=== PATIENT | female | born 1965 | race Caucasian/White ===

== ENCOUNTER 2016-07-29 08:24 | Inpatient (IN) | payer OTHER ==
[~2016-07-29] VITALS: Ht 154.9 cm; Wt 73.3 kg
[2016-07-30] MEDS ORDERED: INSULIN HUMAN REGULAR 1,000 UNITS/10 ML VIAL SQ PRN (06:30)
[2016-07-30] MEDS ORDERED: CHLORHEXIDINE GLUCONATE 2 % 1 PACK (2 CLOTHS) TOPICAL PRN (06:30)
[2016-07-30] MEDS ORDERED: POVIDONE IODINE 5% (ANTISEPSIS KIT) 4 APPLICATIONS EACH NARE PRN (06:30)
[2016-07-30] MEDS ORDERED: ceFAZolin 2 GM PREMIX 50 ML IV SCH (06:30)
[2016-07-30] MEDS ORDERED: METOPROLOL TARTRATE 25 MG TAB PO PRN (06:30)
[2016-07-30] MEDS ORDERED: SODIUM CHLORID 0.9% 500 ML IV PRN (06:30)
[2016-07-30] MEDS ORDERED: LACTATED RINGER'S 1000 ML IV PRN (06:30)
[2016-07-30 06:58] VITALS: BP 107/62; PULSE 60; RESP 16; TEMP 98.5; O2SAT 99
[2016-07-30 07:21] LABS: AUTOMATED NEUTROPHIL # 4.6 TH/MM3 (1.8-7.7); BASOPHIL # 0.1 TH/MM3 (0-0.2); BASOPHIL % 1.1 % (0.0-2.0); EOSINOPHIL # 0.1 TH/MM3 (0-0.4); EOSINOPHIL % 1.7 % (0.0-4.0); HEMATOCRIT 36.7 % (35.0-46.0); HEMO FLAGS DIFF FINAL; LYMPH % 24.8 % (9.0-44.0); LYMPHOCYTE # 1.8 TH/MM3 (1.0-4.8); MEAN CELL VOLUME 81.3 FL (80.0-100.0); MEAN CORPUSCULAR HGB CONC 33.2 % (32.0-36.0); MONO % 8.7 % (0.0-8.0); NEUT % 63.7 % (16.0-70.0); PLATELET COUNT 319 TH/MM3 (150-450); RED BLOOD COUNT 4.52 MIL/MM3 (4.00-5.30); RED CELL DISTRIBUTION WIDTH 15.2 % (11.6-17.2); WHITE BLOOD COUNT 7.3 TH/MM3 (4.0-11.0)
[2016-07-30] MEDS ORDERED: FAMOTIDINE 20 MG/2 ML VIAL ONE (07:55)
[2016-07-30] MEDS ORDERED: BUPIVACAINE/EPINEPHRINE 0.25% PF 30 ML VIAL INFIL ONE (08:22)
--- NOTE | 2016-07-30 09:51 | HHI.PR ---
Immediate Post Op Note Procedure Date: July 30, 2016 Pre Op Diagnosis: hiatal hernia Post Op Diagnosis: same Surgeon: Jeremie Oakley Cement Gun Operator(s): thomas holder Procedure: laparoscopic hiatal hernia repair with mesh Complications: none Estimated blood loss: none Anesthesia: General Drains: None IVF Patient to: PACU Jeremie Oakley MD July 30, 2016 09:51
[2016-07-30] MEDS ORDERED: SODIUM CHLOR 0.9% 1000 ML INJ 1,000 ML IV SCH (09:52)
[2016-07-30] MEDS ORDERED: ONDANSETRON HCL 4 MG/2 ML VIAL IV PRN (10:00)
[2016-07-30] MEDS ORDERED: Post-op Orders (for Pharmacy) MISC XX ONE (10:00)
[2016-07-30] MEDS ORDERED: diphenhydrAMINE HCL 25 MG CAP PO PRN (10:00)
[2016-07-30] MEDS ORDERED: MORPHINE SULFATE 8 MG/ML INJ IV PUSH PRN (10:00)
[2016-07-30] MEDS ORDERED: ACETAMINOPHEN/HYDROcodone 325 MG/5 MG TAB PO PRN ×2 (10:00)
[2016-07-30] MEDS ORDERED: SODIUM CHLORIDE 0.9% FLUSH 5 ML FLUSH IVF PRN (10:00)
[2016-07-30] MEDS ORDERED: MORPHINE SULFATE 4 MG/ML INJ IV PUSH PRN (10:00)
[2016-07-30] MEDS ORDERED: KETOROLAC TROMETHAMINE 30 MG/ML (IVP) VIAL IVP PRN (10:00)
[2016-07-30] MEDS ORDERED: NALOXONE HCL 0.4 MG/ML AMP IV PRN (10:00)
[2016-07-30] MEDS ORDERED: fentaNYL CITRATE 250 MCG/5 ML AMP ONE (10:04)
[2016-07-30] MEDS ORDERED: NEOSTIGMINE 3 MG/3 ML SYR IV ONE (12:00)
[2016-07-30] MEDS ORDERED: DICLOFENAC SODIUM 37.5 MG/ML VIAL IV PUSH ONE (12:00)
[2016-07-30] MEDS ORDERED: LACTATED RINGER'S 1000 ML INJ 1,000 ML IV ONE (12:00)
[2016-07-30] MEDS ORDERED: PROPOFOL 200 MG/20 ML AMP IV ONE (12:00)
[2016-07-30] MEDS ORDERED: ONDANSETRON HCL 4 MG/2 ML VIAL IV PUSH ONE (12:00)
[2016-07-30 16:00] VITALS: BP 137/71; PULSE 76; RESP 17; TEMP 97.3; O2SAT 94
[2016-07-30 16:30] VITALS: O2SAT 97
[2016-07-30] MEDS ORDERED: SODIUM CHLORIDE 0.9% FLUSH 5 ML FLUSH IVF SCH (21:00)
--- NOTE | 2016-07-31 12:59 | MP ---
cc: CHUY CINTRON M.D. DATE OF SURGERY: 07/30/2016. PREOPERATIVE DIAGNOSIS: Symptomatic moderate-sized hiatal hernia. POSTOPERATIVE DIAGNOSIS: Symptomatic moderate-sized hiatal hernia. OPERATIVE PROCEDURE PERFORMED: Laparoscopic hiatal hernia pair with mesh. SURGEON: Chuy Cintron MD. BOTTLE CARRIER Trae Dow M.D. ANESTHESIA: General endotracheal COMPLICATIONS: None. INDICATIONS FOR THE PROCEDURE: Ms. Shook is a pleasant 51-year-old female who had a longstanding history of epigastric abdominal pain and chest pain. She underwent workup with Dr. Justin Larry and was found to have a moderate sized hiatal hernia. The patient had no reflux or esophagitis, rather just pain and pressure in her epigastric area. Dr. Larry referred her to us for consideration of symptomatic hiatal hernia repair. The patient was seen and evaluated in the office and offered repair with mesh. Risks and benefits of the repair were discussed with her and she was agreeable. DESCRIPTION OF THE PROCEDURE IN DETAIL: The patient was identified and brought to the operating room and placed supine on the operating table. After adequate general endotracheal anesthesia was achieved, the abdomen was prepped and draped in the standard surgical fashion. The supraumbilical space was anesthetized with 0.25% Marcaine. A supraumbilical incision was made. Dissection was carried down to the subcutaneous tissue and midline fascia. Midline fascia was then incised sharply. A finger was then placed in the peritoneal cavity without difficulty. Blunt balloon trocar was inserted and the abdomen was insufflated to 15 mmHg using CO2 gas. Next, four 5 mm trocars were placed across the upper abdomen under direct vision after anesthetizing the skin and subcutaneous tissue with 0.25% Marcaine. Attention was directed to the left lobe of the liver which was elevated using the Iqra-Flex liver retractor. Once we did this, we had a clear visualization of the esophageal hiatus. The hiatal hernia was immediately seen and photographed. About a third of the stomach was up in the chest. Attention was first directed to identification of the right diaphragmatic elvie. Using the harmonic scalpel, the gastrohepatic ligament was opened up and the right elvie was easily identified. Once we did this, we went over to the patient's left side and mobilized the greater curvature of the stomach by taking down the short gastric vessels. Dissection proceeded all the way up until the left elvie was identified. Once both sides were clearly seen, a Iqra-Flex Gonzalez's hook retractor was placed behind the esophagus and the stomach was gently pulled down. Once we did this, we had a clear visualization of the diaphragmatic defect. Attention was now directed to repair. Using the #0 Ethibond suture home care assistant, the diaphragmatic crura were reapproximated inferiorly using interrupted x3. The repair was then photographed. The esophagus had ample room to go through the remaining opening. At this point, a piece of Sayre Bio-A mesh was inserted to cover over the repair and reinforce it. Mesh was placed with an opened oriented toward the liver. Mesh was secured superiorly using the Ethibond suture and inferiorly using the Ethibond suture. Mesh was photographed in place. Mesh was then secured with BioGlue on both sides. With this, the defect was well covered and again the esophagus had ample room with passing through the hiatus. Final photograph was taken. 0.25% Marcaine was injected up into the operative site. No bleeding was noted. All ports were then removed under direct vision. Midline fascia was repaired with a #0 Vicryl in a [id number] fashion. Skin was closed with a 4-0 Vicryl. The patient tolerated suture well and as awake and brought to recovery in stable condition. MD EZ Ohara/LIBRADO /9:58 AM /12:42 PM
== END 2016-07-30 19:15 | disposition home or self-care (01) | DRG 328 ==
LOC: HSDI 07-30 05:54 → EDSTATUS 07-30 08:00 → N07A 07-30 12:58
PROVIDERS: ADMIT Surgery Trauma Surgery; ATTEND Surgery Trauma Surgery
PROC: 0BUR4JZ (ICD-10-PCS; 2016-07-30)
PROC: 0BUS4JZ (ICD-10-PCS; principal; 2016-07-30 07:58)
DX: K44.9 Diaphragmatic hernia without obstruction or gangrene (principal)
CPT/HCPCS: 85025; 94150; C1781; J0690; J1130; J1885; J2405; J2710; J3010; J7030; J7120